=== PATIENT | female | born 1955 | race Caucasian/White ===

== ENCOUNTER → 2018-08-11 | Outpatient (CLI) | payer MEDICARE | END | disposition home or self-care (01) | LOC: CFH 14:29 | PROVIDERS: ATTEND Nurse Practitioner Family | DX: Z12.31 Encounter for screening mammogram for malignant neoplasm of breast (principal); R22.1 Localized swelling, mass and lump, neck | CPT/HCPCS: 76536; 77066; 77067 ==

== ENCOUNTER → 2019-08-13 | Outpatient (CLI) | payer MEDICARE | END | disposition home or self-care (01) | LOC: CFH 13:37 | PROVIDERS: ATTEND Nurse Practitioner Primary Care | DX: Z12.31 Encounter for screening mammogram for malignant neoplasm of breast (principal); M25.552 Pain in left hip; M25.551 Pain in right hip | CPT/HCPCS: 73523; 77067 ==

== ENCOUNTER 2021-02-02 07:32 | Outpatient (CLI) | payer MEDICARE | END 2021-02-02 23:59 | disposition home or self-care (01) | LOC: CFH 07:32 | PROVIDERS: ATTEND Nurse Practitioner Primary Care | DX: Z12.31 Encounter for screening mammogram for malignant neoplasm of breast (principal); M81.0 Age-related osteoporosis without current pathological fracture; M25.50 Pain in unspecified joint; N95.9 Unspecified menopausal and perimenopausal disorder | CPT/HCPCS: 77063; 77067; 77080 ==